=== PATIENT | male | born 1970 | race Caucasian/White ===

== ENCOUNTER 2025-06-20 11:29 | Observation (INO) ==
--- NOTE | 2025-06-20 12:12 | Emergency Department Note ---
Impression & Plan Acute appendicitis with localized peritonitis, Right lower quadrant abdominal pain, Acute hyperglycemia ED Provider Note NAME: MARILOU RASCON AGE: 54 SEX: M : 1970 ARRIVES VIA: Walk-In INFORMANT: Patient, ED PROVIDER(S): Elijah Marquis DO CHIEF COMPLAINT: Abdominal pain HPI: The patient is a 54-year-old male who presented to the emergency department for an evaluation of abdominal pain. The patient has been noticing lower abdominal pain over the course the last few days. The patient denies having any rectal bleeding or hematemesis but has had episodes of nausea vomiting as well as fever. The patient does not normally see a family doctor. He came to emergency department today for further evaluation. The patient still has his appendix. ROS: See above HPI for pertinent positives & negatives. A total of 10 systems reviewed and were otherwise negative. PAST MEDICAL HISTORY: See Below PAST SURGICAL HISTORY: See Below FAMILY HISTORY: See Below SOCIAL HISTORY: See Below HOME MEDICATIONS: See Below ALLERGIES: See Below VITALS: See Below PHYSICAL EXAMINATION: GENERAL: Patient is awake alert in no acute distress patient is resting comfortably and showing no signs of anxiety EYES: The conjunctivae are clear. The pupils are round and reactive. EARS, NOSE, MOUTH AND THROAT: The nose is without any evidence of any deformity. Mucous membranes are moist. Tongue is midline. NECK: The neck is nontender and supple. RESPIRATORY: Normal respiratory effort is noted there is no evidence of wheezing rhonchi or rales CARDIOVASCULAR: Regular rate and rhythm noted there no murmurs rubs or gallops normal S1 normal S2. GASTROINTESTINAL: The abdomen was soft and mildly distended. There was guarding in the right lower quadrant. MUSCULOSKELETAL/EXTREMITIES: There is no evidence of gross deformity full range of motion is noted in the hips and shoulders. SKIN: There is no obvious evidence of any rash. There are no petechiae, pallor or cyanosis noted. NEUROLOGIC: Patient is awake alert and oriented x3 MEDICAL DECISION MAKING: The patient is a 54-year-old male who presented to the emergency department for an evaluation of lower abdominal pain. The patient's history and physical exam appear to be consistent with appendicitis. The patient was found to have appendicitis on CT of the abdomen pelvis. I discussed the patient's laboratory and radiographic studies with him. He was treated with IV antibiotics in emergency department. He was also treated with IV insulin for elevated blood sugar. I discussed his condition with the on-call general surgical team. He was evaluated in the emergency department by the surgical team. Triage Nursing notes reviewed. Prior medical records reviewed Vital Signs: reviewed and remarkable for elevated blood pressure. Differential diagnosis: Etiologies such as appendicitis, diverticulitis, obstruction, inflammatory bowel disease, renal colic, PUD, biliary pathology, pancreatitis, mesenteric ischemia, aortic pathology, infections, genitourinary, UTI, perforated viscus, as well as others were entertained. ER treatment provided: See below Diagnostics interpreted by me: ECG: none Cardiac Monitoring: An order was placed for continuous cardiac monitoring. The monitor shows a rate of 85 bpm with sinus rhythm. Laboratory studies: As stated above and show below. Imaging studies: See below. Radiographic imaging was reviewed by myself Consultation(s): I discussed this case with Peg who is on-call for general surgery. Past Med/Surg History Problem List (Updated 06/20/25 @ 15:31 by Elijah Marquis DO) Acute hyperglycemia (Acute) Right lower quadrant abdominal pain (Acute) Obesity Acute appendicitis with localized peritonitis (Acute) Social History Smoking Status: Current every day smoker Preferred Language: Bermud[place] Feels Safe at Home: Yes Allergies Allergies Allergy/AdvReac Type Severity Reaction Status Date / Time iodine Allergy Intermediate swelling Unverified 06/20/25 13:23 of eyes, trouble breathing Home Meds Home Medications Medication Instructions Recorded Confirmed Laxative 0 mg PO DIRECTED PRN 06/20/25 06/20/25 Constipation [facility] Colon Health 0 mg PO DAILY 06/20/25 06/20/25 Results & Data (ED) Vital Signs Vital Signs - 24 hr 06/20/25 11:35 06/20/25 12:13 06/20/25 12:14 Temperature 37.5 C Temperature Source Oral Pulse Rate 99 H Pulse Rate [Apical] 84 Pulse Rate [Finger] Pulse Rhythm [Apical] Regular Pulse Strength [Apical] Normal Respiratory Rate 16 19 Respiratory Effort / Characteristics Non-Labored Spontaneous Respiratory Depth Normal Respiratory Pattern Regular Blood Pressure 171/107 H Blood Pressure [Right Arm] 155/94 H Blood Pressure Mean 128 Blood Pressure Mean [Right Arm] 114 Pulse Oximetry 96 97 97 Oxygen Delivery Method Room Air Room Air Room Air Sepsis Recent Fever Within 48 Hours No Sepsis New/Unexplained Change in Mental Status No Sepsis Action Taken by Nursing No Action Required 06/20/25 13:06 06/20/25 13:32 06/20/25 14:11 Temperature Temperature Source Pulse Rate 73 Pulse Rate [Apical] 75 Pulse Rate [Finger] 86 Pulse Rhythm [Apical] Regular Pulse Strength [Apical] Normal Respiratory Rate 18 18 Respiratory Effort / Characteristics Non-Labored Spontaneous Non-Labored Spontaneous Respiratory Depth Normal Respiratory Pattern Blood Pressure Blood Pressure [Right Arm] 155/97 H Blood Pressure Mean Blood Pressure Mean [Right Arm] 116 Pulse Oximetry 97 97 Oxygen Delivery Method Room Air Room Air Sepsis Recent Fever Within 48 Hours Sepsis New/Unexplained Change in Mental Status Sepsis Action Taken by [facility] Medications Current Medication List: was personally reviewed by me Laboratory Data Attestation: I reviewed the patient's lab results. 06/20/25 11:56 06/20/25 12:55 Lab Results 06/20/25 06/20/25 06/20/25 Range/Units 11:56 12:10 12:55 WBC 15.78 H (4.8-10.8) K/ul RBC 5.01 (4.70-6.10) M/uL Hgb 15.8 (14.0-18.0) g/dl POC Hgb 15.6 (14.0-18.0) g/dl Hct 45.0 (42.0-52.0) % POC Hct 46 (42-52) % MCV 89.8 (80.0-100.0) fL MCH 31.5 (25.0-34.0) pg MCHC 35.1 (32.0-36.0) g/dL RDW Std Deviation 43.6 (36.4-46.3) fL RDW Coeff of Rae 13.4 (11.5-14.5) % Plt Count 235 (130-400) K/uL MPV 11.6 (9.4-12.4) fL Immature Gran % (Auto) 0.7 % Neut % (Auto) 84.2 % Lymph % (Auto) 6.8 % Routt % (Auto) 7.9 % Eos % (Auto) 0.1 % Baso % (Auto) 0.3 % Neut # (Auto) 13.29 H (1.40-6.50) K/uL Lymph # (Auto) 1.08 L (1.20-3.40) K/uL Routt # (Auto) 1.24 H (0.11-0.59) K/uL Eos # (Auto) 0.01 (0.00-0.50) K/uL Baso # (Auto) 0.05 (0.00-0.20) K/uL Immature Gran # (Auto) 0.11 (0.01-0.20) K/uL POC Sodium 135 (135-144) mmol/L Sodium 132 L (136-145) mmol/L POC Potassium 3.7 (3.3-5.0) mmol/L Potassium TNP 4.4 POC Chloride 100 L (101-112) mmol/L Chloride 101 (98-107) mmol/L Carbon Dioxide 22 (21-32) mmol/L POC Total CO2 22 L (24-31) mmol/L Anion Gap 9 (3-11) POC Anion Gap 18.0 (16-25) mmol/L POC BUN 9 (7-18) mg/dl BUN 10 (6-23) mg/dl Creatinine 0.93 (0.6-1.4) mg/dl POC Creatinine 0.9 (0.6-1.3) mg/dl Est Cr Clr Drug Dosing 119.3 ml/min eGFR 97.58 BUN/Creatinine Ratio 10.8 (10-20) Glucose 323 H* (70-99(Fasting)) mg/dl POC Glucose (70-99) mg/dl POC Glucose (other) 311 H (70-99) mg/dl Estimat Average Glucose 249 mg/dl Hemoglobin A1c 10.3 H (4.5-5.6) % Calcium 9.3 (8.6-10.3) mg/dl POC Ioniz Calcium Byron 1.18 (1.12-1.32) mmol/l Total Bilirubin 1.0 (0.2-1.0) mg/dl AST TNP 11 L ALT 19 (7-52) U/L Alkaline Phosphatase 75 (34-104) U/L Total Protein 7.4 (6.0-8.3) gm/dl Albumin 4.2 (3.4-5.0) gm/dl Globulin 3.2 (2.5-4.0) gm/dl Albumin/Globulin Ratio 1.3 (0.9-2) Lipase 10 L (11-82) U/L 06/20/25 Range/Units 14:19 WBC (4.8-10.8) K/ul RBC (4.70-6.10) M/uL Hgb (14.0-18.0) g/dl POC Hgb (14.0-18.0) g/dl Hct (42.0-52.0) % POC Hct (42-52) % MCV (80.0-100.0) fL MCH (25.0-34.0) pg MCHC (32.0-36.0) g/dL RDW Std Deviation (36.4-46.3) fL RDW Coeff of Rae (11.5-14.5) % Plt Count (130-400) K/uL MPV (9.4-12.4) fL Immature Gran % (Auto) % Neut % (Auto) % Lymph % (Auto) % Routt % (Auto) % Eos % (Auto) % Baso % (Auto) % Neut # (Auto) (1.40-6.50) K/uL Lymph # (Auto) (1.20-3.40) K/uL Routt # (Auto) (0.11-0.59) K/uL Eos # (Auto) (0.00-0.50) K/uL Baso # (Auto) (0.00-0.20) K/uL Immature Gran # (Auto) (0.01-0.20) K/uL POC Sodium (135-144) mmol/L Sodium (136-145) mmol/L POC Potassium (3.3-5.0) mmol/L Potassium POC Chloride (101-112) mmol/L Chloride (98-107) mmol/L Carbon Dioxide (21-32) mmol/L POC Total CO2 (24-31) mmol/L Anion Gap (3-11) POC Anion Gap (16-25) mmol/L POC BUN (7-18) mg/dl BUN (6-23) mg/dl Creatinine (0.6-1.4) mg/dl POC Creatinine (0.6-1.3) mg/dl Est Cr Clr Drug Dosing ml/min eGFR BUN/Creatinine Ratio (10-20) Glucose (70-99(Fasting)) mg/dl POC Glucose 230 H (70-99) mg/dl POC Glucose (other) (70-99) mg/dl Estimat Average Glucose mg/dl Hemoglobin A1c (4.5-5.6) % Calcium (8.6-10.3) mg/dl POC Ioniz Calcium Byron (1.12-1.32) mmol/l Total Bilirubin (0.2-1.0) mg/dl AST ALT (7-52) U/L Alkaline Phosphatase (34-104) U/L Total Protein (6.0-8.3) gm/dl Albumin (3.4-5.0) gm/dl Globulin (2.5-4.0) gm/dl Albumin/Globulin Ratio (0.9-2) Lipase (11-82) U/L Administered Medications Morphine Sulfate (Morphine Sulfate 4 Mg/Ml 1 Ml Carp\Vial) 4 mg IV Q15M PRN PRN Reason: Pain Stop: 07/04/25 12:05 Last Admin: 06/20/25 12:18 Dose: 4 mg Documented By: BROOKS Discontinued Medications Albuterol (Albut/Ipratrop 3mg/0.5mg Neb 3 Ml Vial) 3 ml NEB NOW STA; Protocol Stop: 06/20/25 13:55 Last Admin: 06/20/25 14:11 Dose: 3 ml Documented By: ALYCIA Sodium Chloride (Nss) 1,000 mls @ 999 mls/hr IV .Q1H1M STA Stop: 06/20/25 13:06 Last Infusion: 06/20/25 13:24 Dose: Infused Documented By: Admin: 06/20/25 12:18 Dose: 999 mls/hr Documented By: BROOKS Piperacillin Sod/Tazobactam Sod (Zosyn) 4.5 gm in 100 mls @ 200 mls/hr IV NOW ONE; Protocol Stop: 06/20/25 13:38 Last Admin: 06/20/25 13:30 Dose: 200 mls/hr Documented By: BROOKS Insulin Aspart (Insulin Aspart Per Unit Charge) 6 units SC NOW STA Stop: 06/20/25 13:55 Last Admin: 06/20/25 14:03 Dose: 6 units Documented By: MARK Co-signed By: LORNE Insulin Human Regular (Novolin-R Insulin Per Unit Charge) 4 units IV NOW STA Stop: 06/20/25 13:10 Last Admin: 06/20/25 13:28 Dose: 4 units Documented By: BROOKS Co-signed By: RAI Ioversol (Optiray 320 100ml) 93 ml IV ONCE ONE Stop: 06/20/25 12:47 Last Admin: 06/20/25 12:46 Dose: 93 ml Documented By: ANGELO Ondansetron HCl (Ondansetron Inj 2 Mg/Ml 2 Ml Vial) 4 mg IV NOW STA Stop: 06/20/25 12:07 Last Admin: 06/20/25 12:16 Dose: 4 mg Documented By: BROOKS Imaging Data Attestation: I personally reviewed and interpreted this imaging study as follows: My Impression: CT of the abdomen and pelvis was obtained in the emergency department. My interpretation is no free air, stranding noted in the right lower quadrant, final report below. Radiologist's Impression: Abdomen/Pelvis CT 06/20/25 12:06 CT SCAN OF THE ABDOMEN AND PELVIS WITH IV CONTRAST CLINICAL HISTORY: Right lower quadrant abdominal pain. COMPARISON STUDY: No priors. TECHNIQUE: Following the IV administration of 93 cc of Optiray 320, CT scan of the abdomen and pelvis is performed from the lung bases to the proximal femora. Images are reviewed in the axial, sagittal, and coronal planes. IV contrast was administered without complication. A dose lowering technique was utilized adhering to the principles of ALARA. CT DOSE: 1467.89 mGy.cm FINDINGS: Lung bases: The heart is normal in size and without pericardial effusion. The lung bases are clear. There is a tiny hiatal hernia. Liver: The contrast-enhanced liver is enlarged, measuring 20.7 cm in length. Attenuation is diffusely diminished indicating steatosis. Fatty sparing is seen adjacent to the gallbladder fossa. There is no intrahepatic biliary ductal dilatation. The hepatic veins and portal veins are patent. There is a 2 cm left lobe cyst. Gallbladder: Unremarkable. Spleen: Normal in size and attenuation. Pancreas: Mildly atrophic and grossly unremarkable. Adrenal glands: A 2.0 cm low-attenuation left adrenal nodule likely representing an adenoma but cannot be definitively characterized due to the presence of IV contrast. A tiny presumed adenoma is also seen on the right. Kidneys: The contrast enhanced kidneys are normal in size and without hydronephrosis. The kidneys enhance symmetrically. Abdominal vasculature: The abdominal aorta is normal in course and caliber noting mild atherosclerotic calcification. Bowel: No bowel obstruction is seen. There is mild clonic diverticulosis without CT evidence of acute diverticulitis. The appendix is dilated and fluid-filled, measuring up to 1.5 cm diameter as seen on image #248. The axial wall is thickened, and there is pericholecystic inflammation and fluid. Findings are consistent with acute appendicitis. No fluid collection is seen to suggest abscess. Peritoneum: No intraperitoneal free air is identified. There is a small volume of free fluid in the in the right paracolic gutter and pelvis. There is a fat- containing umbilical hernia. Lymphadenopathy: None. Pelvic viscera: The bladder, prostate, and seminal vesicles are normal as visualized. Skeletal structures: No lytic or blastic lesions are seen. IMPRESSION: 1. Acute appendicitis without CT evidence of abscess or perforation. 2. A small volume of free fluid in the lower abdomen and pelvis is likely reactive. 3. Mild diverticulosis of the colon without CT evidence of acute diverticulitis. 4. The liver is enlarged and steatotic. 5. A 2 cm low-attenuation left adrenal nodule likely represents an adenoma but cannot be definitely characterized due to the presence of IV contrast. If warranted a nonemergent unenhanced abdominal CT would be confirmatory. 6. Additional findings as above. ACT 112: Negative or not required by law. Electronically signed by: José Miguel Roman M.D. 06/20/2025 1:09 PM Discharge Plan Visit Data Chief Complaint: Abdominal Pain Stated Complaint: BLOATING,NAUSEA,DRYMOUTH,STOMACH DISCOMFORT ED Provider: Elijah Marquis Discharge Problem: Acute appendicitis with localized peritonitis, Right lower quadrant abdominal pain, Acute hyperglycemia Patient Disposition: Admitted As Inpatient Condition: Fair Discharge Instructions Interventions: ED Discharge Assessment Last Done: 06/20/25 13:45
[2025-06-20] MEDS: ONDANSETRON INJ 2 MG/ML 2 ML VIAL IV STA (12:16)
[2025-06-20 12:17] LABS: Hematocrit (blood only) 45.0 % (42.0-52.0); Hemoglobin 15.8 g/dl (14.0-18.0); Immature Granulocytes # (auto) 0.11 K/uL (0.01-0.20); Immature Granulocytes % (auto) 0.7 %; Mean Corpuscular Hemoglobin 31.5 pg (25.0-34.0); Mean Corpuscular Volume 89.8 fL (80.0-100.0); Platelet Count 235 K/uL (130-400); RDW Standard Deviation 43.6 fL (36.4-46.3); Red Blood Count 5.01 M/uL (4.70-6.10); White Blood Count 15.78 K/ul (4.8-10.8)
[2025-06-20] MEDS: MoRPHine SULFATE 4 MG/ML 1 ML CARP\\VIAL IV PRN (12:18)
[2025-06-20] MEDS: SODIUM CHLORIDE 0.9% 1,000 ML IV STA (12:18)
[2025-06-20 12:39] LABS: Alanine Aminotransferase 19 U/L (7-52); Albumin Globulin Ratio 1.3 (0.9-2); Alkaline Phosphatase 75 U/L (34-104); Anion Gap 9 (3-11); Bilirubin,Total 1.0 mg/dl (0.2-1.0); Blood Urea Nitrogen 10 mg/dl (6-23); Calcium 9.3 mg/dl (8.6-10.3); Carbon Dioxide 22 mmol/L (21-32); Chloride 101 mmol/L (98-107); Creatinine Clr Calc Pharmacy 119.3 ml/min; Globulin 3.2 gm/dl (2.5-4.0); Glucose 323 mg/dl (70-99(Fasting)); Lipase 10 U/L (11-82); Sodium 132 mmol/L (136-145); Total Protein 7.4 gm/dl (6.0-8.3)
[2025-06-20] MEDS: OPTIRAY 320 100ml IV ONE (12:46)
[2025-06-20 12:59] LABS: Hemoglobin A1C 10.3 % (4.5-5.6)
--- NOTE | 2025-06-20 13:12 | CT Scan Report ---
CT SCAN OF THE ABDOMEN AND PELVIS WITH IV CONTRAST CLINICAL HISTORY: Right lower quadrant abdominal pain. COMPARISON STUDY: No priors. TECHNIQUE: Following the IV administration of 93 cc of Optiray 320, CT scan of the abdomen and pelvi s is performed from the lung bases to the proximal femora. Images are reviewed in the axial, sagittal , and coronal planes. IV contrast was administered without complication. A dose lowering technique wa s utilized adhering to the principles of ALARA. CT DOSE: 1467.89 mGy.cm FINDINGS: Lung bases: The heart is normal in size and without pericardial effusion. The lung bases are clear. T here is a tiny hiatal hernia. Liver: The contrast-enhanced liver is enlarged, measuring 20.7 cm in length. Attenuation is diffusely diminished indicating steatosis. Fatty sparing is seen adjacent to the gallbladder fossa. There is n o intrahepatic biliary ductal dilatation. The hepatic veins and portal veins are patent. There is a 2 cm left lobe cyst. Gallbladder: Unremarkable. Spleen: Normal in size and attenuation. Pancreas: Mildly atrophic and grossly unremarkable. Adrenal glands: A 2.0 cm low-attenuation left adrenal nodule likely representing an adenoma but canno t be definitively characterized due to the presence of IV contrast. A tiny presumed adenoma is also s een on the right. Kidneys: The contrast enhanced kidneys are normal in size and without hydronephrosis. The kidneys enh ance symmetrically. Abdominal vasculature: The abdominal aorta is normal in course and caliber noting mild atheroscleroti c calcification. Bowel: No bowel obstruction is seen. There is mild clonic diverticulosis without CT evidence of acute diverticulitis. The appendix is dilated and fluid-filled, measuring up to 1.5 cm diameter as seen on image #248. The axial wall is thickened, and there is pericholecystic inflammation and fluid. Findin gs are consistent with acute appendicitis. No fluid collection is seen to suggest abscess. Peritoneum: No intraperitoneal free air is identified. There is a small volume of free fluid in the i n the right paracolic gutter and pelvis. There is a fat-containing umbilical hernia. Lymphadenopathy: None. Pelvic viscera: The bladder, prostate, and seminal vesicles are normal as visualized. Skeletal structures: No lytic or blastic lesions are seen. IMPRESSION: 1. Acute appendicitis without CT evidence of abscess or perforation. 2. A small volume of free fluid in the lower abdomen and pelvis is likely reactive. 3. Mild diverticulosis of the colon without CT evidence of acute diverticulitis. 4. The liver is enlarged and steatotic. 5. A 2 cm low-attenuation left adrenal nodule likely represents an adenoma but cannot be definitely c haracterized due to the presence of IV contrast. If warranted a nonemergent unenhanced abdominal CT w ould be confirmatory. 6. Additional findings as above. ACT 112: Negative or not required by law. Electronically signed by: José Miguel Roman M.D. 06/20/2025 1:09 PM
[2025-06-20 13:27] LABS: Potassium 4.4 mmol/L (3.5-5.1)
[2025-06-20] MEDS: NovoLIN-R INSULIN PER UNIT CHARGE IV STA (13:28)
[2025-06-20] MEDS: PIPERACILLIN/TAZOBACTAM 4.5 GM/100 ML BAG IV ONE (13:30)
[2025-06-20] MEDS ORDERED: MEPERIDINE HCL 25 MG/ML CARP/VIAL IV PRN (13:36)
[2025-06-20] MEDS ORDERED: ONDANSETRON INJ 2 MG/ML 2 ML VIAL IV PRN ×2 (13:36→16:21)
[2025-06-20] MEDS ORDERED: MoRPHine SULFATE 10 MG/ML CARP/VIAL IV PRN (13:36)
[2025-06-20] MEDS ORDERED: DEXAMETHASONE SOD INJ 4 MG/ML VIAL IV PRN (13:36)
[2025-06-20] MEDS ORDERED: ATROPINE SULFATE 0.1 MG/ML 10ML SYR IV PRN (13:36)
--- NOTE | 2025-06-20 13:36 | History & Physical Report ---
Date of Service June 20, 2025 Assessment & Plan (1) Acute appendicitis with localized peritonitis: Plan: Acute appendicitis Plan for laparoscopic appendectomy Risk of the procedure were discussed to include but not limited to bleeding, infection, conversion to open, normal appendix, abscess, damage to surrounding structures, need for future more extensive surgery Potential discharge later this afternoon or tomorrow Pre-op antibiotic Wound care instructions and activity restrictions reviewed Return precautions given, call with questions or concerns (2) Obesity: History of Present Illness Chief Complaint: Appendicitis Primary Care Provider: NO PCP 54-year-old male presented to the emergency department with several day history of abdominal pain. Started Sunday, lower pelvic cramping and pain. [place] better with probiotic and a laxative. He woke this morning and the pain had returned. It is slightly more on the right side. No similar episodes in the past. Does not regularly follow with a doctor, no prior abdominal surgeries, no blood thinners. Allergies Allergy/AdvReac Type Severity Reaction Status Date / Time iodine Allergy Intermediate swelling Unverified 06/20/25 13:23 of eyes, trouble breathing Home Medications Medication Instructions Recorded Confirmed Type Laxative 0 mg PO DIRECTED PRN 06/20/25 06/20/25 History Constipation [facility] Colon Health 0 mg PO DAILY 06/20/25 06/20/25 History Past Med/Surg History Problem List (Updated 06/20/25 @ 13:34 by Jcarlos Batista DO, FACS) Obesity Acute appendicitis with localized peritonitis Social History Smoking Status: Current every day smoker Preferred Language: Welsh Feels Safe at Home: Yes Review of Systems Review of Systems: All systems reviewed & are unremarkable except as noted in HPI & below Physical Exam Constitutional: WD/WN, vitals as above + obese Respiratory: normal respiratory effort, lungs clear to auscultation Cardiovascular: RRR, no murmur, no edema Gastrointestinal (Abdomen): Percussion/Palpation: + abdomen tender (Tender to palpation RLQ > LLQ) and abdomen soft; no guarding and abdomen not rigid Results & Data Results & Data Vital Signs (Past 12 Hours) Vital Signs Temp Pulse Pulse Resp BP BP Pulse Ox 06/20/25 13:06 73 06/20/25 12:14 97 06/20/25 12:13 84 19 155/94 H 97 06/20/25 11:35 37.5 C 99 H 16 171/107 H 96 O2 Del Method 06/20/25 13:06 06/20/25 12:14 Room Air 06/20/25 12:13 Room Air 06/20/25 11:35 Room Air Laboratory Results Laboratory Results - last 24 hr 06/20/25 06/20/25 06/20/25 11:56 12:10 12:55 WBC 15.78 H RBC 5.01 Hgb 15.8 POC Hgb 15.6 Hct 45.0 POC Hct 46 MCV 89.8 MCH 31.5 MCHC 35.1 RDW Std Deviation 43.6 RDW Coeff of Rae 13.4 Plt Count 235 MPV 11.6 Immature Gran % (Auto) 0.7 Neut % (Auto) 84.2 Lymph % (Auto) 6.8 Giles % (Auto) 7.9 Eos % (Auto) 0.1 Baso % (Auto) 0.3 Neut # (Auto) 13.29 H Lymph # (Auto) 1.08 L Giles # (Auto) 1.24 H Eos # (Auto) 0.01 Baso # (Auto) 0.05 Immature Gran # (Auto) 0.11 POC Sodium 135 Sodium 132 L POC Potassium 3.7 Potassium TNP 4.4 POC Chloride 100 L Chloride 101 Carbon Dioxide 22 POC Total CO2 22 L Anion Gap 9 POC Anion Gap 18.0 POC BUN 9 BUN 10 Creatinine 0.93 POC Creatinine 0.9 Est Cr Clr Drug Dosing 119.3 eGFR 97.58 BUN/Creatinine Ratio 10.8 Glucose 323 H* POC Glucose (other) 311 H Estimat Average Glucose 249 Hemoglobin A1c 10.3 H Calcium 9.3 POC Ioniz Calcium Byron 1.18 Total Bilirubin 1.0 AST TNP 11 L ALT 19 Alkaline Phosphatase 75 Total Protein 7.4 Albumin 4.2 Globulin 3.2 Albumin/Globulin Ratio 1.3 Lipase [address] personally viewed and interpreted agree with the assessment of acute appendicitis without evidence of perforation. Abdomen/Pelvis CT 06/20/25 12:06 CT SCAN OF THE ABDOMEN AND PELVIS WITH IV CONTRAST CLINICAL HISTORY: Right lower quadrant abdominal pain. COMPARISON STUDY: No priors. TECHNIQUE: Following the IV administration of 93 cc of Optiray 320, CT scan of the abdomen and pelvis is performed from the lung bases to the proximal femora. Images are reviewed in the axial, sagittal, and coronal planes. IV contrast was administered without complication. A dose lowering technique was utilized adhering to the principles of ALARA. CT DOSE: 1467.89 mGy.cm FINDINGS: Lung bases: The heart is normal in size and without pericardial effusion. The lung bases are clear. There is a tiny hiatal hernia. Liver: The contrast-enhanced liver is enlarged, measuring 20.7 cm in length. Attenuation is diffusely diminished indicating steatosis. Fatty sparing is seen adjacent to the gallbladder fossa. There is no intrahepatic biliary ductal dilatation. The hepatic veins and portal veins are patent. There is a 2 cm left lobe cyst. Gallbladder: Unremarkable. Spleen: Normal in size and attenuation. Pancreas: Mildly atrophic and grossly unremarkable. Adrenal glands: A 2.0 cm low-attenuation left adrenal nodule likely representing an adenoma but cannot be definitively characterized due to the presence of IV contrast. A tiny presumed adenoma is also seen on the right. Kidneys: The contrast enhanced kidneys are normal in size and without hydronephrosis. The kidneys enhance symmetrically. Abdominal vasculature: The abdominal aorta is normal in course and caliber noting mild atherosclerotic calcification. Bowel: No bowel obstruction is seen. There is mild clonic diverticulosis without CT evidence of acute diverticulitis. The appendix is dilated and fluid-filled, measuring up to 1.5 cm diameter as seen on image #248. The axial wall is thickened, and there is pericholecystic inflammation and fluid. Findings are consistent with acute appendicitis. No fluid collection is seen to suggest abscess. Peritoneum: No intraperitoneal free air is identified. There is a small volume of free fluid in the in the right paracolic gutter and pelvis. There is a fat- containing umbilical hernia. Lymphadenopathy: None. Pelvic viscera: The bladder, prostate, and seminal vesicles are normal as visualized. Skeletal structures: No lytic or blastic lesions are seen. IMPRESSION: 1. Acute appendicitis without CT evidence of abscess or perforation. 2. A small volume of free fluid in the lower abdomen and pelvis is likely reactive. 3. Mild diverticulosis of the colon without CT evidence of acute diverticulitis. 4. The liver is enlarged and steatotic. 5. A 2 cm low-attenuation left adrenal nodule likely represents an adenoma but cannot be definitely characterized due to the presence of IV contrast. If warranted a nonemergent unenhanced abdominal CT would be confirmatory. 6. Additional findings as above. ACT 112: Negative or not required by law. Electronically signed by: José Miguel Roman M.D. 06/20/2025 1:09 PM PG Care Time/CCT Total # of Minutes Spent Total Time Spent with Patient: Total time spent is greater than 50% in coordination of care (as documented) at patient's floor/unit and/or counseling patient: Coding Level of Care Code 63413 INT INP/OBS CARE 2/55MIN Diagnoses Acute appendicitis with localized peritonitis K35.30 Obesity E66.9
--- NOTE | 2025-06-20 13:38 | Anesthesiology Consultation ---
Date of Service June 20, 2025 Assessment & Plan Chart Review Chart Review: Acceptable Risk for Surgery Consults Requested none ASA [id number] Proposed Anesthesia Anesthesia Type: General Risk / Benefits Reviewed With: PT / POA / Parent / Guardian, Accepts Plan and Informed Consent Obtained Additional Comments: rsi preop novolog 6 units and duoneb History Surgery Operation Date: 06/20/25 14:00 Proposed Procedures p Laparoscopic Appendectomy - Jcarlos Batista, DO, FACS Height/Weight Height: 6 ft 2 in Weight: 109 kg Allergies Allergy/AdvReac Type Severity Reaction Status Date / Time iodine Allergy Intermediate swelling Unverified 06/20/25 13:23 of eyes, trouble breathing Medications Home Medications Medication Instructions Recorded Confirmed Last Taken Laxative 0 mg PO DIRECTED PRN 06/20/25 06/20/25 06/20/25 Constipation [facility] Colon Health 0 mg PO DAILY 06/20/25 06/20/25 06/20/25 Active Medications Generic Name Dose Route Start Last Admin Trade Name Freq PRN Reason Stop Dose Admin Morphine Sulfate 4 mg 06/20/25 12:06 06/20/25 12:18 Morphine Sulfate 4 Mg/Ml 1 Ml Carp\Vial IV 07/04/25 12:05 4 mg Q15M PRN Administration Pain NPO Date Last Intake of Fluids: 06/20/25 Date Last Intake of Solids: 06/20/25 Exercise / Class Metabolic Activity II 4-5 Yardwork/Stairs/Walk up hill Past Anesthesia History No Hx of Anesthesia Complications and No Family Hx of Anesthesia Complications History of PONV No Hx of PONV and No Hx of Motion Sickness Social History Smoking Status: Current every day smoker Physical Exam Vital Signs Last Vital Signs Temp 37.5 C 06/20/25 11:35 Pulse 75 06/20/25 13:32 Resp 18 06/20/25 13:32 BP 155/97 H 06/20/25 13:32 Pulse Ox 97 06/20/25 13:32 O2 Del Method Room Air 06/20/25 13:32 Constitutional + obese ENMT Mouth: no TMJ abnormality Thyromental Distance: > or= 3.5 Finger Breadths Mallampati Class: III Neck normal visual inspection, trachea midline, + thick neck and + facial hair; neck extension not limited Respiratory normal respiratory effort Auscultation: + crackles and + wheezes Cardiovascular Rate/Rhythm: regular rate and regular rhythm Heart Sounds: no murmur Musculoskeletal Spine: normal cervical ROM Extremities: full ROM of extremities Neurologic moves all extremities Psychiatric Orientation: alert and oriented x 3 Testing Laboratory Results 06/20/25 11:56 06/20/25 12:55 Hemoglobin A1c 10.3 % (4.5-5.6) H 06/20/25 11:56 06/20/25 12:10 POC Glucose (other) 311 H
[2025-06-20] MEDS ORDERED: PROPOFOL IV EMULSION 10 MG/ML 20 ML VIAL IV ONE ×2 (13:46→14:07)
[2025-06-20] MEDS ORDERED: ROCURONIUM BROMIDE 10 MG/ML 5 ML VIAL IV ONE ×2 (13:46→14:07)
[2025-06-20] MEDS: INSULIN ASPART PER UNIT CHARGE SC STA ×2 (14:03→16:08)
[2025-06-20] MEDS ORDERED: MIDAZOLAM HCL 1 MG/ML 2ML VIAL ONE (14:07)
[2025-06-20] MEDS ORDERED: ONDANSETRON INJ 2 MG/ML 2 ML VIAL ONE (14:07)
[2025-06-20] MEDS ORDERED: LIDOCAINE 2% 2 ML VIAL/AMP(20MG/ML) INFIL ONE (14:07)
[2025-06-20] MEDS ORDERED: SUCCINYLCHOLINE CHLORIDE 20 MG/ML 10 ML VIAL IV ONE (14:07)
[2025-06-20] MEDS: ALBUT/IPRATROP 3MG/0.5MG NEB 3 ML VIAL NEB STA (14:11)
[2025-06-20] MEDS ORDERED: KETOROLAC 30 MG/ML VIAL ONE (14:44)
[2025-06-20] MEDS ORDERED: SUGAMMADEX SODIUM 200 MG/2 ML VIAL IV ONE (14:45)
--- NOTE | 2025-06-20 15:50 | Operative Report ---
PG Post Operative Report Pre & Post Diagnosis Operation Date: 06/20/25 14:00 Pre-Op Diagnosis: Acute Appendicitis Post-Op Diagnosis: Acute Appendicitis gangranous appendix I identified the patient and participated in the time-out.: Yes Procedure Operation Date: 06/20/25 14:00 Actual Procedures p Laparoscopic Appendectomy(Not Applicable) - Jcarlos Batista DO, JHONY Surgeon Jcarlos Batista DO, FACS Mechanics Supervisor Peg Pierce Estimated Blood Loss 15 Findings Consistent with Post-Op Diagnosis Gangrenous appendicitis, no obvious perforation or abscess. 10 mm AYANNA drain placed surgical bed. Specimens Appendix Drains 10 mm AYANNA drain right lower quadrant Anesthesia Type General Complications none Disposition Accompanied Patient To Recovery: No Disposition: Recovery Room Indications 54-year-old presented to the emergency department with signs and symptoms of acute appendicitis that were going on for several days. CT scan showed appendicitis without evidence of perforation. Plan for laparoscopic appendectomy. The risks of the procedure were discussed, all questions were answered, and the patient agreed to proceed with surgery as planned. Description of Procedure The patient was properly identified, consented, and taken to the operating room where he was placed in the supine position. General endotracheal anesthesia was induced. SCDs and a safety belt were placed. Preoperative antibiotics were administered. As the patient was unable to void prior to surgery, A Chapa catheter was placed. The patient's abdomen was prepped and draped in the standard sterile fashion. Surgical timeout was performed and all parties were in agreement that this was the correct patient and procedure to be performed and we continued as planned. An incision was made superior into the left of the umbilicus. Veress needle was inserted and saline drop test confirmed entry into the abdomen. The abdomen was insufflated with carbon dioxide which the patient tolerated without incident. The Veress needle was removed and the abdomen was entered using the Optiview technique and a 5 mm 30 degree scope with a 5 mm port. Trocar was removed and the laparoscope was inserted and no damage from the Veress needle or initial trocar placement was noted, no gross abnormalities were noted within the 4 quadrants the abdomen. A 12 mm port was then placed in the left lower quadrant with care not to damage the epigastric vessels, and a 5 mm port was placed in the suprapubic midline with care not to damage the bladder. The patient was placed in Trendelenburg position and rotated towards the left. The small bowel was swept away from the right lower quadrant. There was significant inflammation in the right lower quadrant at the base of the cecum. Adherent fat and ileum were gently teased away from what appeared to be the appendix. A portion of the right colon was mobilized to allow for adequate dissection. The cecum was grasped with an atraumatic grasper exposing the appendix. The appendix was significantly inflamed and gangrenous all the way down to the base, but there was no evidence of perforation. There was moderate amount of reactive fluid in the pelvis. The mesoappendix was taken down with Sonicision towards the base of the appendix. Additional fat was gently teased away. The base of the appendix was gangrenous. There was some edema and induration along the cecum. Eventually I was able to get a small amount of healthy cecum mobilized adequate enough to staple across the base. A purple loaded endoscopic stapler was then used to divide the appendix at its base. Hemostasis was good. The appendix was placed in an Endo Catch bag and removed through the left lower quadrant port site. The right lower quadrant and pelvis was irrigated and hemostasis was found to be good. A leak test was performed on the new staple line at the base of the appendix and there was no evidence of a leak. A 10 mm flat AYANNA drain was placed in the abdomen and exited through a new incision in the right lower quadrant. This was placed at the surgical bed right at the base of the appendix. This was secured in place with a 2-0 nylon suture. The 12 mm port was removed and the fascia was closed with a [id number] 0 Vicryl suture utilizing the Ag-Adam device. The 5 mm ports were removed and the abdomen was allowed to collapse. The wound was irrigated, and the skin of all ports was closed with 4-0 Monocryl subcuticular sutures. Dermabond was placed over the wounds. A drain dressing was placed over the AYANNA drain. The patient was extubated in the operating room and taken to the PACU where he recovered without apparent incident. All sponge, instrument and needle counts were correct at the conclusion of the procedure. The patient tolerated the procedure well. The physicians quality assistant was present and scrubbed for the entire to the case. She was critical in positioning the patient, prepping and draping, retraction and exposure, driving the laparoscope, removal of the appendix, closure the incisions, placement the dressings. I attest to the content of the Intraoperative Record and any orders documented therein. Any exceptions are noted below.
--- NOTE | 2025-06-20 15:54 | Electrocardiogram Report ---
Test Reason : Blood Pressure : */* mmHG Vent. Rate : 70 BPM Atrial Rate : 70 BPM P-R Int : 172 ms QRS Dur : 86 ms QT Int : 378 ms P-R-T Axes : 34 61 25 degrees QTcB Int : 408 ms Normal sinus rhythm Normal ECG No previous ECGs available Confirmed by Torres Serna ([id number]) on 06/20/2025 3:54:17 PM Referred By: REFERRED SELF Confirmed By: Torres Serna
[2025-06-20] MEDS ORDERED: MoRPHine SULFATE 2 MG/ML CARP IV PRN ×2 (15:58)
[2025-06-20] MEDS ORDERED: DEXTROSE 50% 50 ML SYRINGE IV PRN (16:14)
[2025-06-20] MEDS ORDERED: GLUCOSE 10 TAB/TUBE PO PRN (16:14)
[2025-06-20] MEDS ORDERED: GLUCOSE 40% GEL 15 GM TUBE PO PRN (16:14)
[2025-06-20] MEDS ORDERED: CARBOHYDRATES FOR HYPOGLYCEMIA PO PRN (16:14)
[2025-06-20] MEDS ORDERED: GLUCAGON FOR INJ 1 MG VIAL SQ PRN (16:14)
[2025-06-20] MEDS ORDERED: PHARMACY GLYCEMIC MGMT CONSULT PRN (16:21)
[2025-06-20] MEDS ORDERED: PROMETHAZINE 12.5 MG/50.5 ML BAG IV PRN (16:21)
--- NOTE | 2025-06-20 16:46 | Anesthesiology Progress Note ---
Date of Service June 20, 2025 Anesthesia Post Procedure Vital Signs Vital Signs: Temp Pulse Pulse Pulse Resp BP BP 06/20/25 16:40 82 10 L 138/90 06/20/25 16:30 79 12 145/92 H 06/20/25 16:20 78 13 166/96 H 06/20/25 16:10 82 14 183/101 H 06/20/25 16:02 36.4 C L 80 14 182/106 H 06/20/25 14:11 86 18 06/20/25 13:32 75 18 155/97 H 06/20/25 13:06 73 06/20/25 12:14 06/20/25 12:13 84 19 155/94 H 06/20/25 11:35 37.5 C 99 H 16 171/107 H Pulse Ox O2 Del Method O2 Flow Rate 06/20/25 16:40 92 Room Air 06/20/25 16:30 95 Room Air 06/20/25 16:20 95 Oxymask 4 06/20/25 16:10 96 Oxymask 6 06/20/25 16:02 99 Oxymask 6 06/20/25 14:11 97 Room Air 06/20/25 13:32 97 Room Air 06/20/25 13:06 06/20/25 12:14 97 Room Air 06/20/25 12:13 97 Room Air 06/20/25 11:35 96 Room Air Pain Intensity Lower Abdomen: Pain Intensity: 4 Transfer of Care Handoff Completed per policy Notes Mental Status: alert / awake / arousable Patient Amnestic to Procedure: Yes Nausea / Vomiting: adequately controlled Pain: adequately controlled Airway Patency, RR, SpO2: stable & adequate BP & HR: stable & adequate Hydration State: stable & adequate Anesthetic Complications: no major complications apparent and Pt Satisfied with anesthetic care
[2025-06-20] MEDS: BUPIVACAINE 0.5 % 5 MG/1 ML MPF 30ML VIAL ONE (17:24)
[2025-06-20] MEDS: INSULIN ASPART PER UNIT CHARGE ONE (17:24)
--- NOTE | 2025-06-20 17:57 | Hospitalist Consultation ---
Date of Consultation June 20, 2025 Assessment & Plan (1) Diabetes: (2) Acute appendicitis with localized peritonitis: Plan Wayne is a 54M with no known past medical hx but has not seen a PCP in ~30 years, who presented to the hospital for abdominal pain - found to be acute appendicitis and taken to the OR with Dr. Batista 06/20. Medicine consulted for medical management - new onset diabetes. #Diabetes - New onset A1c 10.3 on admission pharmacy glycemic consult on admission - has received 8 units of lantus Discussed with patient will trend BSG overnight/AM and determine diabetic plan for discharge Discussed the need for PCP follow up and likely eye exam #Acute appendicitis Management per surgery #Possible sleep apnea - concern in PACU, defer to outpatient for sleep study Thank you for allowing us to participate in the care of this patient, please reach out with any questions or concerns. Hospital Medicine will continue to follow Supervising Physician Co-Signing Physician Notes Attending Attestation & Consult Note: Pt seen/examined, chart reviewed, consult care plan d/w LACY Dawson. I agree w/ the moseley components of her consult documentation. 54yo male with obesity who presented with several days of abdominal pain. CT a/p at ER presentation revealed acute appendicitis. Notable admit labs revealed a random glucose level of 323. HbA1c was 10.2%. He did state that he has had nocturia for several months, getting up at least 3- 4 times/night. Admits to copious Coca-Cola consumption (regular, not diet). During my assessment he complains of abd bloating and soreness/pain especially right side of abdomen. PMH/PSH/allergies/sochx - reviewed VSS, BPs initially high in ER (2nd to pain?) - now improved gen - resting in bed comfortably, NAD neck - no JVD mouth - MMM heart - RRR, s1 s2, no murmur lungs - CTA b/l, slight dry rales bases abd - distended, BS+, incisional tenderness, drain in place with serosanguinous fluid, abd wall incisions clean ext - no edema, pulses 2+ b/l feet labs and imaging reviewed A/P: 1. acute appendicitis - s/p laparoscopic appendectomy by Dr Batista; grossly the appendix was gangrenous but no mass seen 2. new onset uncontrolled T2DM pharmacy glycemic team to manage DM while here --> basal-bolus insulin at discharge would Rx with metformin xr twice daily +/- once daily lantus, if necessary DM education good candidate for GLP-1 agonist as outpatient consider TSH check, lipids, etc - but can be done as outpatient Mihai Carranza MD History of Present Illness Reason for Consultation: medical management Requesting Physician: Dr. Batista Attending Physician: Jcarlos Batista DO, FACS History of Present Illness Wayne is a 54M with no known past medical hx but has not seen a PCP in ~30 years, who presented to the hospital for abdominal pain - found to be acute appendicitis and taken to the OR with Dr. Batista 06/20. Medicine consulted for medical management - new onset diabetes. Patient seen post operatively, sister present at bedside. Reports feeling okay right now, no abdominal pain. no idea he was diabetic - sister does report family history of diabetes. Wayne reports frequent urination over the last month did drink a case of soda a week but has cut back in recent weeks Allergies Allergy/AdvReac Type Severity Reaction Status Date / Time iodine Allergy Intermediate swelling Unverified 06/20/25 13:23 of eyes, trouble breathing Home Medications Medication Instructions Recorded Confirmed Type Laxative 0 mg PO DIRECTED PRN 06/20/25 06/20/25 History Constipation [facility] [employer] [facility] ([facility] Health 0 mg PO DAILY 06/20/25 06/20/25 History Patient History Social History Smoking Status: Current every day smoker Tobacco Type: Cigarettes Second Hand Exposure: Yes; Do You Dip or Chew Tobacco: No; Tobacco Cessation Education Requested by Patient: No Hx Alcohol Use: Yes Alcohol type: beer Hx Substance Use: No Preferred Language: Azeri Communication Ability: Effective Metal Bench Patternmaker Required: No Beliefs That Will Affect Care: None Current Living Situation: Family Other Information That Helps Us Care for You: No Feels Safe at Home: Yes Safety Concerns: Feels Safe At This Time Assistive Devices: None Review of Systems Review of Systems: All systems reviewed & are unremarkable except as noted in Subjective Physical Exam Physical Exam: General: NAD, VS as above Resp: normal respiratory effort, lungs clear to auscultation CV: RRR, no murmur, Abd: icisions c/d/i, grayson drain in place Extremities: Moves all extremities, Neuro: A&O x3, Results & Data Results & Data Vital Signs (Past 12 Hours) Vital Signs Temp Pulse Pulse Pulse Resp BP BP 06/20/25 17:30 98.4 F 75 16 129/78 06/20/25 16:50 99.0 F 80 13 132/78 06/20/25 16:40 82 10 L 138/90 06/20/25 16:30 79 12 145/92 H 06/20/25 16:20 78 13 166/96 H 06/20/25 16:10 82 14 183/101 H 06/20/25 16:02 97.5 F L 80 14 182/106 H 06/20/25 14:11 86 18 06/20/25 13:32 75 18 155/97 H 06/20/25 13:06 73 06/20/25 12:14 06/20/25 12:13 84 19 155/94 H 06/20/25 11:35 99.5 F 99 H 16 171/107 H Pulse Ox O2 Del Method O2 Flow Rate 06/20/25 17:30 91 Room Air 06/20/25 16:50 92 Room Air 06/20/25 16:40 92 Room Air 06/20/25 16:30 95 Room Air 06/20/25 16:20 95 Oxymask 4 06/20/25 16:10 96 Oxymask 6 06/20/25 16:02 99 Oxymask 6 06/20/25 14:11 97 Room Air 06/20/25 13:32 97 Room Air 06/20/25 13:06 06/20/25 12:14 97 Room Air 06/20/25 12:13 97 Room Air 06/20/25 11:35 96 Room Air Laboratory Results cbc chemsitry and A1c reviewed PG Care Time/CCT Total # of Minutes Spent Total Time Spent with Patient: Total time spent is greater than 50% in coordination of care (as documented) at patient's floor/unit and/or counseling patient: Coding Level of Care Code 30166 IN/OBS CONSULT LVL 2,35M Diagnoses Diabetes E11.9 Acute appendicitis with localized peritonitis K35.30
[2025-06-20] MEDS: LACTATED RINGER'S 1,000 ML IV SCH (18:21)
[2025-06-20] MEDS: INSULIN ASPART PER UNIT CHARGE SC SCH (18:25)
[2025-06-20] MEDS: PIPERACILLIN/TAZOBACTAM 4.5 GM/100 ML BAG IV SCH (20:03)
[2025-06-20] MEDS: LANTUS PER UNIT CHARGE SC ONE (22:04)
[2025-06-20] MEDS: MELATONIN 3 MG TAB PO PRN (23:04)
[2025-06-21 06:12] LABS: Hematocrit (blood only) 40.7 % (42.0-52.0); Hemoglobin 13.4 g/dl (14.0-18.0); Immature Granulocytes # (auto) 0.05 K/uL (0.01-0.20); Immature Granulocytes % (auto) 0.4 %; Mean Corpuscular Hemoglobin 30.9 pg (25.0-34.0); Mean Corpuscular Volume 93.8 fL (80.0-100.0); Platelet Count 213 K/uL (130-400); RDW Standard Deviation 46.5 fL (36.4-46.3); Red Blood Count 4.34 M/uL (4.70-6.10); White Blood Count 11.21 K/ul (4.8-10.8)
[2025-06-21 06:29] LABS: Alanine Aminotransferase 13.0 U/L (7-52); Albumin Globulin Ratio 1.3 (0.9-2); Alkaline Phosphatase 56.0 U/L (34-104); Anion Gap 7.0 (3-11); Bilirubin,Total 1.0 mg/dl (0.2-1.0); Blood Urea Nitrogen 11.0 mg/dl (6-23); Calcium 8.4 mg/dl (8.6-10.3); Carbon Dioxide 26.0 mmol/L (21-32); Chloride 103.0 mmol/L (98-107); Creatinine Clr Calc Pharmacy 107.8 ml/min; Globulin 2.6 gm/dl (2.5-4.0); Glucose 201.0 mg/dl (70-99(Fasting)); Potassium 3.6 mmol/L (3.5-5.1); Sodium 136.0 mmol/L (136-145); Total Protein 6.1 gm/dl (6.0-8.3)
[2025-06-21 08:55] LABS: Appearance Urine Clear (Clear); Bacteria Urine Automated None Seen (None Seen); Cast Urine Automated 0-2 /lpf (0-2); Epithelial Cell Urine Auto 0-2 /hpf (0-2); Glucose Urine UA 2+ (Negative); RBC Urine Automated >20 /hpf (0-2); WBC Urine Automated 0-5 /hpf (0-5)
[2025-06-21] MEDS: LANTUS PER UNIT CHARGE SC ONE (09:02)
--- NOTE | 2025-06-21 10:00 | Hospitalist Progress Note ---
Date of Service June 21, 2025 Assessment & Plan (1) Diabetes: (2) Acute appendicitis with localized peritonitis: Kamari Black is a 54M with no known past medical hx but has not seen a PCP in ~30 years, who presented to the hospital for abdominal pain - found to be acute appendicitis and taken to the OR with Dr. Batista 06/20. Medicine consulted for medical management - new onset diabetes. #Diabetes - New onset A1c 10.3 on admission pharmacy glycemic consult on admission - has received 8 units of lantus Discussed options for diabetic management - patient agreeable to Metfomin 500mg XR BID. Glucometer also prescribed. Instructed to check blood sugar at least twice a day and take log to PCP appointment Discussed the need for PCP follow up, routine health maintence labs and likely eye exam - Message sent to Nurse Navigator to get established within [place] system. #Acute appendicitis Management per surgery CBC and chemistry reviewed. #Possible sleep apnea - concern in PACU, defer to outpatient for sleep study Medically stable - dispo per surgery. consumer educator consulted if patient remains inpatient tomorrow Thank you for allowing us to participate in the care of this patient, please reach out with any questions or concerns. hospital Medicine will follow periperhally. Admission and Anticipated Discharge Date Admission Date: June 20, 2025 Subjective patient seen ambulating around the room. Reports feeling well pain is controlled from surgery. We discussed diabetes and lifestyle modification. He would prefer to start with an oral pill instead of insulin injections. I feel this is reasonable as there are many lifestyle modifications that he can make. We talked about increasing his physical tear activity especially after meals. We talked about decreasing his carbohydrate intake and monitoring his sugar intake. He was agreeable to establishing with a Srinath Soria PCP in [place] Review of Systems Review of Systems: All systems reviewed & are unremarkable except as noted in Subjective Physical Exam Physical Exam: General: NAD, vitals as above, ambulating around the room Pulm: breathing unlabored CV: well perfused extremities: moves all extremities Results & Data Results & Data Vital Signs (Past 12 Hours) Vital Signs Temp Pulse Resp BP Pulse Ox O2 Del Method 06/21/25 07:02 98.2 F 71 16 155/90 H 96 Room Air 06/21/25 03:30 98.4 F 81 18 133/77 96 Room Air 06/21/25 00:00 98.6 F 80 18 125/81 95 Room Air 06/20/25 22:16 98.6 F Laboratory Results CBC, chemistry, protein or glucose reviewed PG Care Time/CCT Total # of Minutes Spent Total Time Spent with Patient: Total time spent is greater than 50% in coordination of care (as documented) at patient's floor/unit and/or counseling patient: Coding Level of Care Code 02280 SUB INP/OBS CARE 3/50MIN Diagnoses Diabetes E11.9 Acute appendicitis with localized peritonitis K35.30
--- NOTE | 2025-06-21 11:17 | Surgery Progress Note ---
Date of Service June 21, 2025 Assessment & Plan (1) S/P laparoscopic appendectomy: Plan: POD #1 s/p Laparoscopic Appendectomy with Dr. Batista. Prakash is doing well. He reports that his pain is well-controlled with PRN pain medication, he denies any N/V. He has expected tenderness at incision sites. Incisions are healing well with no signs of infection. Right abdominal drain is holding suction well. Will keep drain in place. He can advance his diet as tolerated. Continue IV antibiotics. Patient to remain in hospital today with possible discharge to home tomorrow. Appreciate medical team's assistance with newly diagnosed diabetes. Admission and Anticipated Discharge Date Admission Date: June 20, 2025 Supervising Physician Co-Signing Physician Notes Patient seen and examined, labs reviewed, agree with above. POD 1 laparoscopic appendectomy for gangrenous appendicitis. Sore in the lower abdomen, feels slightly better than admission. On exam he is afebrile stable vitals. Abdomen is soft, AYANNA minimal serosanguineous drainage. Incisions without infection. Abdomen appropriately tender to palpation. WBC 11.2 down from 15 yesterday. Diet as tolerated, continue antibiotics, appreciate medicine assistance in helping to control blood sugars. Potential discharge in next 24 to 48 hours pending clinical course. Ruslan Black is sitting in chair at bedside. He reports that he is sore at incision sites, but is overall doing well. He is tolerating a liquid diet. Regular diet ordered for lunch. He has been ambulating in room. Notes that he has been able to void, but is somewhat painful. Physical Exam Physical Exam: Abdominal incisions are clean, dry, intact and well-approximated with Dermabond glue in place. Drain of right abdomen in place, holding excellent suction with serosang output. No evidence of active bleeding. He is tender at incision sites. Results & Data Vital Signs (Past 12 Hours) Vital Signs Temp Pulse Resp BP Pulse Ox O2 Del Method 06/21/25 07:02 36.8 C 71 16 155/90 H 96 Room Air 06/21/25 03:30 36.9 C 81 18 133/77 96 Room Air 06/21/25 00:00 37.0 C 80 18 125/81 95 Room Air PG Care Time/CCT Total # of Minutes Spent Total Time Spent with Patient: Total time spent is greater than 50% in coordination of care (as documented) at patient's floor/unit and/or counseling patient: Coding Level of Care Code 14409 Post Operative Follow-Up Diagnoses S/P laparoscopic appendectomy Z90.49
--- NOTE | 2025-06-21 14:45 | Pharmacy Report ---
Pharmacy Glycemic Short Note 2 - Date of Service June 21, 2025 - Glycemic Short BSG Results (Last 24 hours): 06/20/25 06/20/25 06/20/25 16:04 16:39 20:48 Glucose POC Glucose 227 H 215 H 183 H 06/21/25 06/21/25 06/21/25 05:17 07:52 11:35 Glucose 201 H POC Glucose 187 H 198 H OUTPATIENT ANTIDIABETIC REGIMEN: * new diagnosis ASSESSMENT: * Wayne is a 54 yo s/p laparoscopic appendectomy with new diagnosis of diabetes. A1c = 10.3%. * He was started on SC basal + bolus insulin regimen on 8/2 PM. * Fasting BSG of 187 mg/dL after Lantus 10 units last evening. Will give additional 5 units this morning and continue Lantus 10 units at HS for now. * Tighten Novolog CF/CR due to lunch above goal. PLAN FOR INPATIENT GLYCEMIC CONTROL: * Basal insulin * Lantus 5 units SC this AM x 1 * Continue Lantus 10 units SC HS * Bolus insulin * NovoLog per scale ACHS or Q6hrs while NPO * Goal Range: Low 110 mg/dL - High 140 mg/dL * Correction Factor: 25 mg/dL/unit * Nutritional / Prandial insulin per carb ratio of 1 unit per 9 grams CHO consumed
[2025-06-21] MEDS: LANTUS PER UNIT CHARGE SC SCH (20:39)
[2025-06-21] MEDS: SODIUM CHLORIDE 0.9% 1,000 ML IV SCH (21:50)
[2025-06-22 07:14] LABS: Hematocrit (blood only) 43.6 % (42.0-52.0); Hemoglobin 14.3 g/dl (14.0-18.0); Immature Granulocytes # (auto) 0.04 K/uL (0.01-0.20); Immature Granulocytes % (auto) 0.5 %; Mean Corpuscular Hemoglobin 30.8 pg (25.0-34.0); Mean Corpuscular Volume 94.0 fL (80.0-100.0); Platelet Count 231 K/uL (130-400); RDW Standard Deviation 46.8 fL (36.4-46.3); Red Blood Count 4.64 M/uL (4.70-6.10); White Blood Count 8.37 K/ul (4.8-10.8)
[2025-06-22 07:26] VITALS: O2SAT 97
--- NOTE | 2025-06-22 07:38 | Surgery Progress Note ---
Date of Service June 22, 2025 Assessment & Plan (1) S/P laparoscopic appendectomy: Plan: s/p lap appy on 06/20 WBC 8.3, vitals stable. AYANNA drain serosang doing well, tolerating diet. had episode of pain in RLQ after he dropped something but is manageable appreciate hospitalists assistance with DM management, appears stable from their end on note yesterday consider d/c to home later today with possible drain removal will need f/u in the office with PCP and dr. Batista in 1-2 weeks Admission and Anticipated Discharge Date Admission Date: June 20, 2025 Supervising Physician Co-Signing Physician Notes Patient seen and examined, labs reviewed, agree with above. POD 2 laparoscopic appendectomy for gangrenous appendicitis. Feeling better, pain improved. On exam he is afebrile stable vitals. Abdomen is soft, AYANNA minimal serosanguineous drainage. Incisions without infection. Abdomen appropriately tender to palpation. WBC normalized. Plan for discharge this afternoon, will check with medicine regarding new medications or follow-up for his hyperglycemia. Oral antibiotics for 1 week. AYANNA drain can be removed later this week in the clinic. Wound care instructions and activity restrictions reviewed. Follow-up with me in 2 weeks. Return precautions given, call with questions or concerns Subjective Patient tolerating diet , no nausea/vomiting. + flatus. Reports some pain around drain site after he dropped something and picked it up. Ambulating some. Physical Exam Physical Exam: awake/alert, no distress Gastrointestinal (Abdomen): Inspection/Auscultation: + abdominal surgical incision (c/d/i with dermabond) and + abdominal surgical drain present (serosang, 315cc last 12 hrs) Results & Data Vital Signs (Past 12 Hours) Vital Signs Temp Pulse Pulse Resp BP Pulse Ox O2 Del Method 06/22/25 07:24 97.9 F 71 20 153/84 H 97 Room Air 06/21/25 23:37 98.4 F 81 18 153/85 H 96 Room Air PG Care Time/CCT Total # of Minutes Spent Total Time Spent with Patient: Total time spent is greater than 50% in coordination of care (as documented) at patient's floor/unit and/or counseling patient: Coding Level of Care Code 19878 Post Operative Follow-Up Diagnoses S/P laparoscopic appendectomy Z90.49
[2025-06-22 07:56] LABS: Alanine Aminotransferase 14.0 U/L (7-52); Albumin Globulin Ratio 1.3 (0.9-2); Alkaline Phosphatase 56.0 U/L (34-104); Anion Gap 6.0 (3-11); Bilirubin,Total 1.0 mg/dl (0.2-1.0); Blood Urea Nitrogen 11.0 mg/dl (6-23); Calcium 8.5 mg/dl (8.6-10.3); Carbon Dioxide 27.0 mmol/L (21-32); Chloride 104.0 mmol/L (98-107); Creatinine Clr Calc Pharmacy 113.3 ml/min; Globulin 2.8 gm/dl (2.5-4.0); Glucose 153.0 mg/dl (70-99(Fasting)); Potassium 3.7 mmol/L (3.5-5.1); Sodium 137.0 mmol/L (136-145); Total Protein 6.4 gm/dl (6.0-8.3)
[2025-06-22 11:47] VITALS: BP 150/85; PULSE 70; RESP 18; TEMP 98.2
--- NOTE | 2025-06-24 13:31 | Discharge Summary ---
Date of Service June 22, 2025 Admission HPI Per Admitting Provider 54-year-old male presented to the emergency department with several day history of abdominal pain. Started Sunday, lower pelvic cramping and pain. [place] better with probiotic and a laxative. He woke this morning and the pain had returned. It is slightly more on the right side. No similar episodes in the past. Does not regularly follow with a doctor, no prior abdominal surgeries, no blood thinners. Principal Diagnosis s/p laparoscopic appendectomy diabetes Discharge Exam awake/alert, no distress Gastrointestinal (Abdomen) Inspection/Auscultation: + abdominal surgical incision (c/d/i with dermabond) and + abdominal surgical drain present (serosang, 315cc last 12 hrs) Discharge Data Allergies Allergy/AdvReac Type Severity Reaction Status Date / Time iodine Allergy Intermediate swelling Unverified 06/20/25 13:23 of eyes, trouble breathing Consultations 06/20/25 13:13 Consult General Surgery Stat 06/20/25 16:03 Consult Hospitalist Routine Procedures Performed Operation Date: 06/20/25 14:00 Actual Procedures p Laparoscopic Appendectomy(Not Applicable) - Jcarlos Stone DO, FACS Ordered Studies 06/20/25 12:06 CT abd pelvis IV con only Stat Hospital Course (1) S/P laparoscopic appendectomy: This is a 54yM who presented to the [facility] ED on 8/ with complaints of abdominal pain. Workup with a CT a/p showed findings concerning for appendicitis. He was also found to have evidence of new diabetes. On 8/ the patient went to the OR with Dr. Stone for laparoscopic appendectomy. The patient tolerated the procedure well, see op note for full details. Post op he had a AYANNA drain in place and remained on IV abx for gangrenous appendicitis. Hospitalists followed along for management of new diabetes and set him up with a PCP appt and medications and equipment. His diet was advanced as he tolerated. AYANNA drain remained serosang. in nature. On POD#2 he was deemed stable for discharge to home. he was instructed to follow up with PCP in short order for his new diabetes and with dr. stone within the week for check up and drain removal. He was provided a course of oral antibiotics to complete at home. Total Time Total Time Spent Total Time Spent (In Minutes): 15 Discharge Plan Discharge Items Patient Disposition: Home - Self-Care Reason For Visit: S/P LAP APPENDECTOMY Discharge Diagnosis: laparoscopic appendectomy Condition on Discharge: Fair Activity: Per Instructions section Lifting: No more than 10 pounds Bathing Comment: may shower; no soaking in tubs/pools x 2 weeks Exercise/Sports: Wait until after follow-up appointment Driving/Machine Use: no driving while taking narcotics for pain Non-emergency contact: Primary Care Provider and Surgeon Call non-emergency contact if: your symptoms worsen, your pain is not controlled, your pain is unusual for you, you have a fever, your temperature is above 101.5, your wound has increased redness, your wound has increased drainage and your wound pain has increased Follow-up/Referrals: Jcarlos Stone DO, FACS [Physician] - 06/26/25 10:15 am (please follow up in the office with the nurses later this week for surgical drain removal) Young Khan DO [Physician] - 06/26/25 1:00 pm (Will need to schedule new patient appointment. This appointment is a hospital follow up appointment. Please arrive 15 minutes prior to appointment time. Please take ID and insurance cards with you. If you are unable to keep this appointment please call the office to reschedule.) PCP,NO [Primary Care Provider] - Diet: Carb Consistent or DM2 Addtl Attending Provider Instructions: SPECIAL CARE INSTRUCTIONS: * You have skin glue over your incisions called dermabond. you may shower with this on. It will tend to dissolve and fall off within a couple weeks. Do not pick at the skin glue * Please care for your surgical drain as you have been instructed prior to discharge from the hospital. Empty drain 2-3x/daily and record output. Otherwise keep to bulb suction. You should follow up in the office later this week for drain removal * You may shower . NO soaking in pools or baths for 2 weeks * Please complete the full course of antibiotic prescribed to you * No lifting greater than 10lbs. No strenuous exercise until cleared by surgeon. Light walking is accepted. * No driving while taking narcotic pain medication; wait at least 3 days * No drinking alcohol while taking narcotic pain medication * May use Ibuprofen/Tylenol over the counter for pain as tolerated. Do not exceed 3grams of Tylenol per 24 hours * Expect some swelling and bruising. * Diet- you may resume your regular diet Call your doctor if: * Temperature above 101 degrees, nausea/vomiting, fever/chills * Pain not relieved by pain medicine ordered * There is increased drainage or redness from any incision * You have any unanswered questions or concerns [phone]. FOLLOW UP VISIT: If not already scheduled, please call the office for a follow-up visit. Office Add Stream Control Officer Provider Instructions: Hospital Medicine: You were found to be diabetic during your stay with a [id number] of 10.3. We discussed different options for diabetic management at home and you have opted for oral medication. We have started you on Metformin 500mg twice a day. The main side effect of this medication is GI side effects - nausea, diarrhea,etc I have also sent a glucometer, lancets, test strips to your pharmacy. Please check your blood sugar every morning and before one meal a day. Keep a log of your blood sugars and bring these to your PCP appointment. I have asked my nurse navigator to set you up in the [facility] Office for PCP follow up. I have attached multiple information about diabetes and lifestyle changes. Anything you can do to increase your physical activity, especially after meals can help to lower your blood sugar. Cutting back on your sugar and carbohydrate intake will also help your blood sugar. Pending Studies at Discharge: Yes Studies:: surgical pathology Stand-Alone Forms: [facility], Smoking Cessation Medications and DC Order Prescriptions: New metformin 500 mg tablet extended release 24 hr 500 mg PO BID 30 Days Qty: 60 1RF (DME) blood-glucose meter [Accu-Chek Guide Glucose Meter] Misc See Rx Instructions .Route Qty: 1 0RF Rx Instructions: As directed (DME) Accu-Chek Guide test strips Strip See Rx Instructions .Route Qty: 100 1RF Rx Instructions: As directed - 4 times per day (DME) lancets 30 gauge misc See Rx Instructions .Route Qty: 100 1RF Rx Instructions: As directed - 4 times per day oxycodone 5 mg tablet 5 - 10 mg PO .[id number] PRN (Reason: pain, for initial therapy, max 6 tabs per day) Qty: 15 0RF amoxicillin-pot clavulanate 875-125 mg tablet 1 tab PO BID 7 Days Qty: 14 0RF Continued Laxative 0 mg PO DIRECTED PRN (Reason: Constipation) Patient Comments: 06/20- OTC unknown dose [employer] [facility] 0 mg PO DAILY Patient Comments: 06/20- OTC unknown dose Discharge Orders: Discharge Order (Routine); Ordered 06/22/25 Ordered By: Renée Yee/Other Patient Handouts: Resources for People with Diabetes, Diabetes Food Shop Meals Prep, Diabetes: The Benefits of Exercise, Diabetes Serving Portion Sizes, Blood Sugar Check Steps, Type 2 Diabetes Admission Data Admit Date/Time: 06/20/25 15:59 Attending Provider: Jcarlos Stone Admit Provider: Jcarlos Stone Primary Care Provider: PCP,NO Other Providers: Jcarlos Stone; Mihai Carranza Other Interventions: Discharge Summary Assessment (RN) Last Done: 06/22/25 13:12 Coding Level of Care Code 41929 IN/OBS DISCH 30 MIN/LESS Diagnoses S/P laparoscopic appendectomy Z90.49
== END 2025-06-22 14:06 | disposition home or self-care (01) ==
LOC: ED 11:29 → OR 13:48 → 3W 13:48